=== PATIENT | female | born 1960 ===

== ENCOUNTER 2016-08-24 13:39 | Observation (INO) | payer OTHER ==
[2016-08-24 14:46] LABS: BASO # 0.1 K/uL (0.0-0.2); BASO % 0.9 % (0.0-2.0); EOS # 0.4 K/uL (0.0-0.7); EOS % 5.5 % (0.0-4.0); LYMPH % 29.4 % (20.0-40.0); MEAN CORPUSCULAR HEMOGLOBIN 26.7 pg (27.0-31.0); MEAN CORPUSCULAR HGB CONC 31.3 g/dL (33.0-37.0); MEAN PLATELET VOLUME 10.3 fL (7.2-11.7); MONO # 0.5 K/uL (0.0-0.8); MONO % 7.6 % (0.0-10.0); WHITE BLOOD COUNT 6.8 K/uL (4.8-10.8)
[2016-08-24 14:59] LABS: POTASSIUM 4.3 mmol/L (3.6-5.2)
[2016-08-24 15:01] LABS: ALB/GLOB RATIO 0.9 (1.0-2.1); BILIRUBIN,TOTAL 0.7 mg/dL (0.2-1.3); TOTAL PROTEIN 7.7 g/dL (6.3-8.3)
[2016-08-24 15:02] LABS: CALCIUM 8.9 mg/dl (8.6-10.4)
[2016-08-24 15:12] LABS: TROPONIN I 0.09 ng/mL (0.00-0.120)
[2016-08-24 15:13] LABS: RBC URINE 5 /hpf (0-3); URINE BACTERIA RARE (<OCC); URINE BILIRUBIN NEGATIVE (NEGATIVE); URINE BLOOD NEGATIVE (NEGATIVE); URINE COLOR Yellow (YELLOW); URINE GLUCOSE (UA) 3+ mg/dL (Normal); URINE KETONE NEGATIVE (NEGATIVE); URINE LEUKOCYTE ESTERASE 3+ Leu/uL (Negative); URINE PROTEIN 3+ mg/dL (NEGATIVE); URINE UROBILINOGEN NORMAL mg/dL (0.2-1.0); WBC URINE 46 /hpf (0-5)
--- NOTE | 2016-08-24 15:32 | RAD ---
HISTORY: SOB COMPARISON: No prior. TECHNIQUE: Chest PA and lateral FINDINGS: LUNGS: Increased interstitial markings likely representing pulmonary venous congestion however the possibility of interstitial pneumonia not completely excluded. Clinical correlation recommended. PLEURA: No significant pleural effusion identified. No pneumothorax apparent. CARDIOVASCULAR: Cardiomegaly. OSSEOUS STRUCTURES: No significant abnormalities. VISUALIZED UPPER ABDOMEN: Normal. OTHER FINDINGS: None. IMPRESSION: Cardiomegaly. Increased interstitial markings likely representing pulmonary venous congestion however the possibility of interstitial pneumonia not completely excluded. Clinical correlation recommended.
--- NOTE | 2016-08-24 15:37 | C.PDOC ---
History Of Present Illness A 56 y/o female with htn, dm, [place] presents to the ER c/o chest pain and bilateral leg swelling for " a long time". Pt notes pain worsened last week and had trouble ambulating. Chest pain is sharp and worse with movement. Pt notes occasional shortness of breath, increased thirst and frequent urination, but denies fever, nausea, vomiting, dizziness, palpitations, light headedness or any other complaints. Pt reports she lived in [place] and moved here 4 months ago. Pt has not been compliant with her chronic medications for a week. According to old paperwork pt is on Insulin, Plavix, lasix and is unsure why she takes it but notes having " surgery on the groin". Pt is a poor historian. Time Seen by Provider: 08/24/16 14:22 Chief Complaint (Nursing): Chest Pain History Per: Patient, Family () History/Exam Limitations: language barrier (Information from ) Onset/Duration Of Symptoms: Days Current Symptoms Are (Timing): Still Present Severity: Mild Quality: "Pain" Recent travel outside of the [place]: No Additional History Per: Patient, Family Past Medical History Reviewed: Historical Data, Nursing Documentation, Vital Signs Vital Signs: Last Vital Signs Temp 98.4 F 08/24/16 16:42 Pulse 83 08/24/16 16:42 Resp 17 08/24/16 16:42 BP 179/88 H 08/24/16 16:42 Pulse Ox 98 08/24/16 18:17 Family History: States: Diabetes - Social History Hx Tobacco Use: No (quit 7 years ago) Hx Alcohol Use: No Hx Substance Use: No - Immunization History Hx Influenza Vaccination: No Hx Pneumococcal Vaccination: Yes Review Of Systems Except As Marked, All Systems Reviewed And Found Negative. Constitutional: Positive for: Other (Increased thirst). Negative for: Fever, Chills Cardiovascular: Positive for: Chest Pain. Negative for: Palpitations, Light Headedness Respiratory: Positive for: Shortness of Breath (Occasional) Gastrointestinal: Negative for: Nausea, Vomiting Genitourinary: Positive for: Frequency (Urination) Neurological: Negative for: Dizziness Physical Exam - Physical Exam Appears: Well, Non-toxic, No Acute Distress Skin: Warm, Dry Head: Atraumatic, Normacephalic Eye(s): bilateral: Normal Inspection, EOMI Nose: Normal Oral Mucosa: Moist Chest: Symmetrical, Tenderness (Left sided Reproducable chest wall tenderness) Cardiovascular: Rhythm Regular, No Murmur Respiratory: Normal Breath Sounds, No Accessory Muscle Use, Other (Speaking full sentences) Gastrointestinal/Abdominal: Normal Exam, Soft, No Tenderness Extremity: Normal ROM, No Tenderness, Pedal Edema (Bilateral pedal edema. Mild erythema. (left greater than right)), No Calf Tenderness, Capillary Refill (< 2secs), No Deformity Pulses: Left Dorsalis Pedis: Normal, Right Dorsalis Pedis: Normal Neurological/Psych: Oriented x3, Normal Speech, Other (No focal deficit) ED Course And Treatment - Laboratory Results Result Diagrams: 08/24/16 14:38 08/24/16 14:38 ECG: Interpreted By Me, Viewed By Me ECG Rhythm: Sinus Rhythm ECG Interpretation: Normal Rate From EC O2 Sat by Pulse Oximetry: 98 (RA) Pulse Ox Interpretation: Normal Progress Note: Impression: 56 y/o c/o chest pain and blateral leg swelling for "a long time". Plan: Aspirin, Blood labs, Vascular lab. Talked to Dr. Reddy and agreed upon admission. Disposition - Disposition Disposition: HOSPITALIZED Disposition Time: 16:30 Condition: STABLE - Clinical Impression Clinical Impression: Chest pain, Congestive heart failure, UTI (urinary tract infection) - Scribe Statement The provider has reviewed the documentation as recorded by the [employer] All medical record entries made by the Scribe were at my direction and personally dictated by me. I have reviewed the chart and agree that the record accurately reflects my personal performance of the history, physical exam, medical decision making, and the department course for this patient. I have also personally directed, reviewed, and agree with the discharge instructions and disposition.
[2016-08-24 15:46] LABS: PARTIAL THROMBOPLASTIN TIME 28 SECONDS (21-34)
--- NOTE | 2016-08-24 16:58 | CP.PCM.HP ---
<Masoud Mcconnell - Last Filed: 08/24/16 18:05> History of Present Illness - History of Present Illness History of Present Illness: CC: chest pain and swollen legs 56F PMHx HTN, DM, CKD, right CVA 4 years ago, [place] 3 years ago here complaining worsening chest pain and swelling of bilateral LE. Patient said chest pain started 2 months ago, sharp in nature and worse with movements. Pain is intermittent and usually lasts around 30 minutes. Patient said activities worsens the pain and pain radiate down to her abdomen. Patient also complains swelling for the past 3 years but recently got worse because she ran out of all of her medication, which includes Lasix that usually improves her symptoms. Patient returned from [place] 4 months ago after visiting her son, and was hospitalized at [facility] in [place], [place] for similar symptoms. Patient is not sure why she was on Plavix, said she had some kind of groin surgery 3-4 years ago. Patient also said she was told to stop Lisinopril long time ago due to her kidney problems. Patient has been compliant with her medication until 1- 2 months ago when she ran out of them. Patient sleeps with 2 pillows due to orthopnea and can only tolerate one block of walking before getting SOB. Patient also said she has 3+ pounds weight gain in the last week as well. Patient denied sweating, SOB, fever, chills, n/v, constipation, diarrheal, dysuria. PMHx: see above PSHx: possible cath 3 years ago, gallbladder removed long time ago FMHx: DM Social: former smoker with 13 pack years history, stopped 7 years ago. Denied ETOH or drugs. PMD: none Present on Admission - Present on Admission Any Indicators Present on Admission: No Review of Systems - Review of Systems All systems: reviewed and no additional remarkable complaints except - Constitutional Constitutional: absent: Chills, Fever - EENT Eyes: absent: Change in Vision - Cardiovascular Cardiovascular: Chest Pain, Chest Pain with Activity, Claudication, Dyspnea on Exertion, Edema - Respiratory Respiratory: absent: Cough, Dyspnea, Wheezing - Gastrointestinal Gastrointestinal: absent: Abdominal Pain, Constipation, Diarrhea, Nausea, Vomiting - Genitourinary Genitourinary: absent: Dysuria - Neurological Neurological: Tingling (right fingers). absent: Abnormal Gait Past Patient History - Infectious Disease Hx of Infectious Diseases: None - Past Social History Smoking Status: Never Smoked - CARDIAC Hx Cardiac Disorders: Yes Other/Comment: [place] 3 YEARS AGO - ENDOCRINE/METABOLIC Hx Diabetes Mellitus Type 2: Yes - PSYCHIATRIC Hx Substance Use: No Meds Allergies/Adverse Reactions: Allergies Allergy/AdvReac Type Severity Reaction Status Date / Time No Known Allergies Allergy Verified 08/24/16 13:56 Physical Exam - Constitutional Appears: Non-toxic, No Acute Distress - Head Exam Head Exam: NORMAL INSPECTION, NORMOCEPHALIC - Eye Exam Eye Exam: Normal appearance Pupil Exam: NORMAL ACCOMODATION - Respiratory Exam Respiratory Exam: Decreased Breath Sounds, Clear to Auscultation Bilateral, NORMAL BREATHING PATTERN. absent: Rhonchi, Wheezes - Cardiovascular Exam Cardiovascular Exam: REGULAR RHYTHM, JVD, +S1, +S2. absent: Tachycardia, Diastolic murmur, Gallop, Rubs - GI/Abdominal Exam GI & Abdominal Exam: Normal Bowel Sounds, Soft. absent: Tenderness - Extremities Exam Extremities exam: Positive for: pedal edema, pedal pulses present - Neurological Exam Neurological exam: Alert, Oriented x3 - Psychiatric Exam Psychiatric exam: Normal Affect, Normal Mood - Skin Skin Exam: Intact Results - Vital Signs Recent Vital Signs: Last Vital Signs Temp 98.4 F 08/24/16 16:42 Pulse 83 08/24/16 16:42 Resp 17 08/24/16 16:42 BP 179/88 H 08/24/16 16:42 Pulse Ox 95 08/24/16 16:42 - Labs Result Diagrams: 08/24/16 14:38 08/24/16 14:38 Assessment & Plan - Assessment and Plan (Free Text) Assessment: Chest pain likely secondary to CHF Admit to tele. EKG NSR@75bpm. CXR showed cardiomegaly and pulmonary congestion per report. BNP 43225. Negative d-dimer. CORRINE negative x1. Cardio Dr. Jean consulted, help appreciated. Lasix 40mg IV q12H. Toradol 30mg IV q6H PRN. Lopressor 25mg PO q12H. Lisinopril on hold due to kidney injuries. F/U CORRINE x2. F/U ECHO. F/U lipid panel. F/U TSH and T4. Lower extremity swelling likely secondary to CHF Arterial duplex negative for clot. Other management as per above. CKD Cr 2.[address] Greene consulted, help appreciated. DM RISS, accuchecks. Lantus 10U SC HS. F/U A1c. Hx of CVA and [place] Plavix 75mg PO daily. ASA 81mg PO daily. Crestor 20mg PO HS. Positive UA Patient asymptomatic. F/U urine culture. Prophylactic measure SCD contraindicated, Plavix, Protonix. <Trey Sanderson - Last Filed: 09/25/16 13:33> Results - Vital Signs Recent Vital Signs: Last Vital Signs Temp 97.9 F 08/26/16 15:29 Pulse 59 L 08/26/16 15:30 Resp 20 08/26/16 15:29 BP 123/60 08/26/16 23:53 Pulse Ox 95 08/26/16 15:29 - Labs Result Diagrams: 08/27/16 13:50 08/27/16 13:50 Attending/Attestation - Attestation I have personally seen and examined this patient.: Yes I have fully participated in the care of the patient.: Yes I have reviewed all pertinent clinical information: Yes Notes (Text): Patient Seen and examined with the resident. Agree with the resident's evaluation, assessment and plan. Chest pain rule out acute mi likely also acute on chronic CHF unk ef Lower extremity swelling likely secondary to CHF CKD
[2016-08-24] MEDS ORDERED: Pantoprazole 40 mg EC Tab PO SCH (18:00)
[2016-08-24 19:44] VITALS: RESP 20
[2016-08-24] MEDS: (Novolin R) Insulin Human Regular 100 units/ml vial SC SCH (22:19)
[2016-08-24] MEDS: Insulin Detemir 100 units/ml Vial (Levemir) SC SCH (22:19)
[2016-08-25 07:12] LABS: BASO # 0.1 K/uL (0.0-0.2); EOS # 0.4 K/uL (0.0-0.7); EOS % 6.9 % (0.0-4.0); HEMATOCRIT 35.8 % (34.0-47.0); LYMPH # 1.5 K/uL (1.0-4.3); LYMPH % 25.6 % (20.0-40.0); MEAN CELL VOLUME 83.7 fL (81.0-99.0); MEAN CORPUSCULAR HEMOGLOBIN 26.3 pg (27.0-31.0); MEAN CORPUSCULAR HGB CONC 31.4 g/dL (33.0-37.0); MEAN PLATELET VOLUME 10.1 fL (7.2-11.7); MONO # 0.5 K/uL (0.0-0.8); RED CELL DISTRIBUTION WIDTH 14.7 % (11.5-14.5); WHITE BLOOD COUNT 5.8 K/uL (4.8-10.8)
[2016-08-25 07:37] LABS: CHLORIDE 106 mmol/L (98-107)
[2016-08-25 07:38] LABS: POTASSIUM 4.3 mmol/L (3.6-5.2); SODIUM 140 mmol/L (132-148)
[2016-08-25 07:40] LABS: AST/SGOT 23 U/L (14-36); BILIRUBIN,TOTAL 0.6 mg/dL (0.2-1.3); BLOOD UREA NITROGEN 50 mg/dL (7-17); CARBON DIOXIDE 24 mmol/L (22-30); CHOLESTEROL 253 mg/dL (0-199); GFR AFRICAN-AMERICAN 23; TOTAL PROTEIN 6.9 g/dL (6.3-8.3)
[2016-08-25 07:41] LABS: ALKALINE PHOSPHATASE 122 U/L (38-126); ALT/SGPT 24 U/L (9-52); CALCIUM 8.5 mg/dl (8.6-10.4); GLUCOSE,RANDOM 131 mg/dL (65-105)
[2016-08-25] MEDS: (Novolin R) Insulin Human Regular 100 units/ml vial SC SCH ×4 (08:13→22:20)
[2016-08-25 08:23] LABS: T4 6.12 ug/dL (5.5-11.0)
[2016-08-25 08:58] LABS: CREATININE, RANDOM URINE 39.9 mg/dL
--- NOTE | 2016-08-25 09:55 | VASCLAB ---
PROCEDURE: Lower Extremity Venous Duplex Exam. HISTORY: swelling pain PRIORS: None. TECHNIQUE: Bilateral common femoral, femoral, popliteal and posterior tibial, peroneal and great saphenous veins were evaluated. Flow was assessed with color Doppler, compressibility, assessment of phasic flow and augmentation response. Report prepared by STEWART Li, RVT FINDINGS: RIGHT: 1. Common Femoral Vein: 1.1. Compressibility - Fully compressible: Thrombus - None : Flow - Phasic: Augmentation -Normal: Reflux - None. 2. Femoral Vein: 2.1. Compressibility - Fully compressible: Thrombus - None : Flow - Phasic: Augmentation -Normal: Reflux - None. 3. Popliteal Vein: 3.1. Compressibility - Fully compressible: Thrombus - None : Flow - Phasic: Augmentation -Normal: Reflux - None. 4. Posterior Tibial Vein: 4.1. Compressibility - Fully compressible: Thrombus - None: Flow - Phasic: Augmentation -Normal: Reflux - None. 5. Peroneal Vein: 5.1. Compressibility - Fully compressible: Thrombus - None: Flow - Phasic: Augmentation -Normal: Reflux - None. 6. Great Saphenous Vein: 6.1. Compressibility - Fully compressible: Thrombus - None: Flow - Phasic: Augmentation - Normal: Reflux - None. LEFT: 1. Common Femoral Vein: 1.1. Compressibility - Fully compressible: Thrombus - None: Flow - Phasic: Augmentation -Normal: Reflux - None. 2. Femoral Vein: 2.1. Compressibility - Fully compressible: Thrombus - None: Flow - Phasic: Augmentation -Normal: Reflux - None. 3. Popliteal Vein: 3.1. Compressibility - Fully compressible: Thrombus - None : Flow - Phasic: Augmentation -Normal: Reflux - None. 4. Posterior Tibial Vein: 4.1. Compressibility - Fully compressible: Thrombus - None: Flow - Phasic: Augmentation -Normal: Reflux - None. 5. Peroneal Vein: 5.1. Compressibility - Fully compressible: Thrombus - None: Flow - Phasic: Augmentation -Normal: Reflux - None. 6. Great Saphenous Vein: 6.1. Compressibility - Fully compressible: Thrombus - None: Flow - Phasic: Augmentation - Normal: Reflux - None. OTHER FINDINGS: Right: None significant. Left: None significant. IMPRESSION: Right: No evidence of deep or superficial vein thrombosis of the right lower extremity. Normal valve function noted of the right side. Left: No evidence of deep or superficial vein thrombosis of the left lower extremity. Normal valve function noted of the left side.
--- NOTE | 2016-08-25 10:31 | US ---
Renal and urinary bladder ultrasound History: Renal failure. Comparison: None available. Technique: Real-time sonography was performed through the kidneys and urinary bladder. Findings: Right kidney: 9.6 x 4.5 x 5.3 centimeters. Mild increased echogenicity of the renal cortex suggestive for medical renal disease. No calculi or hydronephrosis. Visualized aorta is preserved. Left kidney: 7.9 x 4.4 x 4.7 centimeters. Mild increased echogenicity of the renal cortex suggestive for medical renal disease. No calculi or hydronephrosis. Under distended and or mildly thickened urinary bladder. Prevoid bladder volume of 126 cc. No significant postvoid residual noted within the urinary bladder. Bilateral ureteral jets were noted. No gross bladder wall thickening. No bladder calculus noted. Impression: Increased echogenicity of the bilateral renal cortices suggestive for medical renal disease. Mild thickening versus underdistention of the urinary bladder.
--- NOTE | 2016-08-25 12:44 | CON ---
DATE: 08/25/2016 REASON FOR CONSULTATION: Chest pain. HISTORY OF PRESENT ILLNESS: The patient is a 56-year-old female who is a smoker. She prese nted because of sharp chest pain as well as bilateral leg swelling. The patient stated that her pain gets worse with movement and if she touches her chest. The patient denies any radiation of her ches t discomfort. The patient states that she had a heart attack and cardiac catheterization some 5 year s ago at [facility], but is unaware of any coronary intervention. There are no obtainable recor ds on the [employer] database for that history. SOCIAL HISTORY: The patient is a smoker, nondrinker. MEDICATIONS: Aspirin 81 mg once a day, Crestor 20 mg once a day, heparin 5000 units q. 12 hours, Las ix 40 mg intravenous twice a day, Lopressor 25 mg once a day, Plavix 75 mg once a day. PHYSICAL EXAMINATION: GENERAL: The patient is a middle-aged female who does not appear to be in any distress. VITAL SIGNS: Blood pressure 129/71, heart rate 55, temperature 97.9, respirations 20. HEENT: Normocephalic. NECK: No JVD. CHEST: Clear. HEART: S1, S2 regular. EXTREMITIES: 1+ pitting edema. DIAGNOSTIC DATA: EKG revealed sinus rhythm, left atrial enlargement, right axis deviation. LABORATORY DATA: SMA-7 is within normal limits except for glucose of 131, BUN and creatinine are 50 and 2.6. Hemoglobin and hematocrit 11.3 and 35.8. White count and platelet count are within normal limits. PT, PTT and D-dimer are within normal limits. Venous Doppler of lower extremities, no DVT. Two sets of troponins are negative. Triglycerides 167, total cholesterol 253, LDL cholesterol 135. The 3 are elevated. ASSESSMENT: 1. Chest pain, myocardial infarction is ruled out. 2. Chronic renal insufficiency. 3. Hyperlipidemia. 4. Rule out congestive heart failure. RECOMMENDATIONS: Continue current aspirin 81 mg once a day, Crestor 20 mg once a day, subcutaneous h eparin 5000 units twice a day, Lasix 40 mg intravenous twice a day, Lopressor 25 mg twice a day, Plav ix 75 mg once a day. The patient is not a suitable candidate for CYN inhibitors, at least at this ti me. Obtain an echocardiograph study as well as urine drug screen. Josef Jean MD cc: [id number] TT: 08/25/2016 12:44:23 Confirmation # [id number] Dictation # [id number] rn
[2016-08-25 14:57] LABS: RBC URINE 22 /hpf (0-3); URINE BACTERIA RARE (<OCC); URINE BILIRUBIN NEGATIVE (NEGATIVE); URINE BLOOD 1+ (NEGATIVE); URINE COLOR Yellow (YELLOW); URINE GLUCOSE (UA) 2+ mg/dL (Normal); URINE KETONE NEGATIVE (NEGATIVE); URINE LEUKOCYTE ESTERASE 3+ Leu/uL (Negative); URINE PROTEIN 2+ mg/dL (NEGATIVE); URINE UROBILINOGEN NORMAL mg/dL (0.2-1.0); WBC URINE 81 /hpf (0-5)
--- NOTE | 2016-08-25 17:14 | CP.PCM.PN ---
<Donta Rizvi - Last Filed: 09/01/16 22:00> Subjective - Date & Time of Evaluation Date of Evaluation: 08/25/16 Time of Evaluation: 07:43 - Subjective Subjective: Pt seen and examined. Pt reports that she is feeling better today. Pt reports that her shortness of breath has improved. Pt denies fever, chills, chest pain, shortness of breath, nausea, and vomiting. Objective - Vital Signs/Intake and Output Vital Signs (last 24 hours): Temp Pulse Resp BP Pulse Ox 98.1 F 62 20 138/72 99 08/25/16 15:00 08/25/16 15:00 08/25/16 15:00 08/25/16 15:00 08/25/16 15:00 Intake and Output: 08/25/16 08/25/16 06:59 18:59 Intake Total 100 Output Total 350 Balance -250 - Medications Medications: Current Medications Aspirin (Aspirin Chewable) 81 mg PO DAILY [facility] Last Admin: 08/25/16 10:13 Dose: 81 mg Clopidogrel Bisulfate (Plavix) 75 mg PO DAILY [facility] Last Admin: 08/25/16 10:17 Dose: 75 mg Famotidine (Pepcid) 20 mg PO DAILY [facility] Last Admin: 08/25/16 10:13 Dose: 20 mg Furosemide (Lasix) 40 mg IVP Q12H [facility] Last Admin: 08/25/16 06:03 Dose: 40 mg Heparin Sodium (Porcine) (Heparin) 5,000 units SC Q12 [facility] Last Admin: 08/25/16 10:22 Dose: 5,000 units Insulin Detemir (Levemir) 10 unit SC [facility] Last Admin: 08/24/16 22:19 Dose: 10 unit Insulin Human Regular (Novolin R) 0 unit SC [facility] PRN Reason: Protocol Last Admin: 08/25/16 12:00 Dose: Not Given Metoprolol Tartrate (Lopressor) 25 mg PO Q12H [facility] Last Admin: 08/25/16 06:02 Dose: 25 mg Rosuvastatin Calcium (Crestor) 20 mg PO [facility] Last Admin: 08/24/16 22:18 Dose: 20 mg - Labs Labs: 08/25/16 06:57 08/25/16 06:57 PT 10.6 SECONDS (9.7-12.2) 08/24/16 15:31 INR 1.0 08/24/16 15:31 APTT 28 SECONDS (21-34) 08/24/16 15:31 - Constitutional Appears: No Acute Distress - Head Exam Head Exam: ATRAUMATIC, NORMOCEPHALIC - Eye Exam Eye Exam: EOMI, PERRL - ENT Exam ENT Exam: Mucous Membranes Moist. absent: Mucous Membranes Dry - Neck Exam Neck Exam: Full ROM. absent: Lymphadenopathy - Respiratory Exam Respiratory Exam: Clear to Ausculation Bilateral. absent: Rales, Rhonchi, Wheezes - Cardiovascular Exam Cardiovascular Exam: +S1, +S2 - GI/Abdominal Exam GI & Abdominal Exam: Soft. absent: Tenderness - Extremities Exam Extremities Exam: Full ROM. absent: Pedal Edema - Neurological Exam Neurological Exam: Alert, Awake, Oriented x3 - Psychiatric Exam Psychiatric exam: Normal Affect, Normal Mood - Skin Skin Exam: Normal Color, Warm Assessment and Plan - Assessment and Plan (Free Text) Assessment: CHF Exacerbation: CXR - cardiomegaly and pulmonary venous congestion (please see full report_ Pro-BNP 17709. D-dimer < 200 Cardiology, Dr. Jena consulted, help appreciated. Lasix 40mg IV q12H. Lopressor 25mg PO q12H. Lisinopril held due to CKD Troponins 0.09, 0.092, 0.1 x 3 Echocardiogram - severe cardiomyopathy, ejection fraction of 35% Arterial duplex negative Renal Insufficiency: Cr 2.6 today, worsening Nephro Dr. Greene consulted, help appreciated. As per nephro, likely worsening CKD due to diabetic nephropathy Diabetes Mellitus: RISS, accuchecks. Lantus 10U SC HS. Hx of [place]: Plavix 75mg PO daily. ASA 81mg PO daily. Crestor 20mg PO HS. Prophylactic measure: DVT: SCDs contraindicated due to lower extremity edema, heparin 5000 units sc q12h GI: Protonix 40 mg po qd <Trey Sanderson - Last Filed: 09/25/16 14:28> Objective - Vital Signs/Intake and Output Vital Signs (last 24 hours): Temp Pulse Resp BP Pulse Ox 97.9 F 59 L 20 123/60 95 08/26/16 15:29 08/26/16 15:30 08/26/16 15:29 08/26/16 23:53 08/26/16 15:29 - Labs Labs: 08/27/16 13:50 08/27/16 13:50 PT 10.6 SECONDS (9.7-12.2) 08/24/16 15:31 INR 1.0 08/24/16 15:31 APTT 28 SECONDS (21-34) 08/24/16 15:31 Attending/Attestation - Attestation I have personally seen and examined this patient.: Yes I have fully participated in the care of the patient.: Yes I have reviewed all pertinent clinical information, including history, physical exam and plan: Yes Notes (Text): Patient Seen and examined with the resident. Agree with the resident's evaluation, assessment and plan. CHF Exacerbation: acute on chronic diastolic Acute Renal Insufficiency
--- NOTE | 2016-08-25 17:39 | CARD ---
APPROVED REPORT EXAM: Two-dimensional and M-mode echocardiogram with Doppler and color Doppler. Other Information Quality : GoodRhythm : NSR INDICATION Chest Pain Congestive Heart Failure PEDAL EDEMA M-Mode DIMENSIONS RVDd2.23 (2.1-3.2cm)Left Atrium (MM)3.75 (2.5-4.0cm) IVSd1.13 (0.7-1.1cm)Aortic Root2.77 (2.2-3.7cm) LVDd5.15 (4.0-5.6cm)Aortic Cusp Exc.1.41 (1.5-2.0cm) PWd0.98 (0.7-1.1cm)FS (%) 17 % LVDs4.30 (2.0-3.8cm)LVEF (%)35 (>50%) Aortic Valve AoV Peak Rttmogsm730.8cm/Ayah Peak GR.4mmHg Mitral Valve MV E Bpkwuckf537.8cm/sMV A Mlstwmeg86.6cm/sE/A ratio5.5 TDI E/Lateral E'0.0E/Medial E'0.0 Tricuspid Valve TR Peak [id number]/sTR Peak Gr.[id number] LEFT VENTRICLE The left ventricle is normal size. There is normal left ventricular wall thickness. The left ventricular function is markedly reduced. The left ventricular ejection fraction is about 25%. The mid and apical inferolateral lassiter are dyskinetic. Transmitral Doppler flow pattern is Grade III- restrictive diastolic dysfunction. No left ventricle thrombus noted on this study. There is no ventricular septal defect visualized. There is no left ventricular aneurysm. There is no mass noted in the left ventricle. RIGHT VENTRICLE The right ventricle is normal size. There is normal right ventricular wall thickness. The right ventricular systolic function is mildly reduced ATRIA The left atrium size is normal. The right atrium size is normal. The interatrial septum is intact with no evidence for an atrial septal defect. AORTIC VALVE The aortic valve is normal in structure and function. Mild aortic regurgitation is present. There is no aortic valvular stenosis. There is no aortic valvular vegetation. MITRAL VALVE The mitral valve is normal in structure and function. There is no evidence of mitral valve prolapse. There is no mitral valve stenosis. There is no mitral valve regurgitation noted. TRICUSPID VALVE The tricuspid valve is normal in structure and function. There is mild tricuspid valve regurgitation noted. Estimated PA systolic pressure is 28 mm Hg. There is no tricuspid valve prolapse or vegetation. There is no tricuspid valve stenosis. PULMONIC VALVE The pulmonary valve is normal in structure and function. There is no pulmonic valvular regurgitation. There is no pulmonic valvular stenosis. GREAT VESSELS The aortic root is normal in size. The ascending aorta is normal in size. The pulmonary artery is normal. The IVC is normal in size and collapses >50% with inspiration. PERICARDIAL EFFUSION The pericardium appears normal. There is no pleural effusion. <Conclusion> Severe cardiomyopathy. The mid and apical inferolateral lassiter are dyskinetic. Advanced diastolic dysfunction with elevated LA pressure. Mild aortic regurgitation.
--- NOTE | 2016-08-25 18:31 | CARD ---
APPROVED REPORT EKG Measurement Heart [id number] <Conclusion> Normal sinus rhythm Possible Left atrial enlargement Right axis deviation Abnormal ECG
--- NOTE | 2016-08-25 21:34 | CON ---
DATE: 08/25/2016 HISTORY OF PRESENT ILLNESS: The patient is a 56-year-old female with past medical history of diabete s, hypertension, status post CVA, status post WI and CKD stage IV, admitted with chest pain and CHF e xacerbation. Nephrology being consulted for worsening of renal failure. The patient reports having been told about her chronic kidney disease, but did not pursue any followu p. The patient also reports having run out of all of her medications for several months and has not been following with any PMD. The patient reports shortness of breath on exertion. Was only able to tolerate 1 block of walking before getting short of breath. Bilateral leg edema has been persistent also for some time now. Denies any urinary symptoms, difficulty urinating or dysuria. PAST MEDICAL HISTORY: As mentioned above. SOCIAL HISTORY: A previous smoker, stopped 7 years ago. FAMILY HISTORY: Diabetes. REVIEW OF SYSTEMS: CONSTITUTIONAL: No chills or fever. HEENT: Vision has been worsening, can see almost nothing in right eye. CARDIOVASCULAR: As mentioned in HPI. RESPIRATORY: No URI symptoms. GASTROINTESTINAL: No nausea, vomiting, diarrhea. GENITOURINARY: As mentioned in HPI. NEUROLOGIC: Bilateral foot numbness. PSYCHIATRIC: Denies any anxiety or depression. HEMATOLOGIC: Denies any bleeding. SKIN: Denies any itching or rashes. PHYSICAL EXAMINATION: VITAL SIGNS: This morning, blood pressure 129/71, heart rate 55, respirations 20, O2 sat 96% on room air, temperature 97.9. GENERAL: No distress. Stable to converse coherently in full sentences. HEENT: Normocephalic, atraumatic. Moist mucous membranes. Nonicteric. RESPIRATORY: Very mild inspiratory rales present. Otherwise, no rhonchi, no wheezes. HEART: S1, S2 normal, no murmurs, no gallops, no rubs. GASTROINTESTINAL: Abdomen soft, nontender, nondistended. GENITOURINARY: No bladder distention. EXTREMITIES: Moderate bilateral lower leg edema. Normal capillary refill. Faint dorsalis pedis pul ses palpable. SKIN: Warm, no cyanosis. PSYCHIATRIC: Normal mood, normal affect. NEUROLOGIC: Decreased sensation in bilateral feet. LABORATORY DATA: WBC 5.8, hemoglobin 11.3, hematocrit 35.8, platelets 243. Chemistry panel: Sodium 140, potassium 4.3, chloride 106, bicarb 24, BUN 50, creatinine 2.6, glucose 131, calcium 8.5, album in 3.4, cholesterol 253, LDL 135. Hemoglobin A1c 11.2. UA showing 2+ protein, 2+ glucose, 1+ blood, 3+ leukocyte esterase, 81 WBCs per high-power field, 22 RBCS per high-power field, rare bacteria. U rine protein to creatinine ratio 8.5 g/g. ASSESSMENT AND PLAN: 1. Chronic kidney disease stage IV, most likely secondary to diabetic nephropathy with progression o f CKD and proteinuria consistent with this diagnosis. This patient's creatinine was about 1.5 a year and a half ago and with about 1 gram of proteinuria. Additional serologic workup obtained to look f or other potential causes, but has been unremarkable with unremarkable complement levels, hepatitis B and C negative, awaiting REID and ANCA serologies as well as workup for possible dysproteinemia with serum free light chains and protein electrophoresis pending. 2. Relatively stable electrolyte status. 3. Avoid nephrotoxic agents. Do not give NSAIDs for pain. Will hold off on ARB for now until it ca n be safely concluded that renal function is stable. 4. Acute decompensated systolic congestive heart failure. The patient with echo showing severe syst olic dysfunction with multiple wall motion abnormalities, also with diastolic dysfunction noted. Cur rently on Lasix IV 40 mg q. 12 hours. Agree with this regimen. Continue with beta blockers to optim ize cardiac status. 5. Proteinuria nephrotic syndrome with more than 8 grams of protein. Proteinuria per urine protein c reatinine ratio, hypoalbuminemia and hyperlipidemia. In general, the mainstay of treatment for prote inuria is RAAS blockade with either ARB or CYN inhibitor as this has been shown to slowly decline in renal function. However, must be weighed against further worsening renal function, which can be expe cted with initiation of these agents. If left completely untreated then advancing to ESRD will have been very quickly. If renal function is stable tomorrow and the patient's volume status has improved will consider starting low dose losartan 25 mg daily. 6. Hyperlipidemia. The patient with diabetes and further with nephrotic syndrome should be on high potency statin, i.e., either atorvastatin or rosuvastatin. 7. Hematuria. Microscopic can be glomerular etiology which can be seen in diabetic nephropathy. We will need to directly visualize for better assessment. Recommend to send urine for cytology. Colton Greene MD cc: [id number] TT: 08/25/2016 21:33:16 Confirmation # [id number] Dictation # [id number]
[2016-08-25] MEDS: Insulin Detemir 100 units/ml Vial (Levemir) SC SCH (22:19)
[2016-08-26 04:22] LABS: TOTAL PROTEIN, SERUM 6.5 g/dL (6.1-8.1)
[2016-08-26] MEDS: (Novolin R) Insulin Human Regular 100 units/ml vial SC SCH ×4 (07:30→22:45)
[2016-08-26 07:47] LABS: IRON 39 ug/dL (37-170)
[2016-08-26 10:34] LABS: BASO # 0.1 K/uL (0.0-0.2); BASO % 1.1 % (0.0-2.0); EOS # 0.4 K/uL (0.0-0.7); EOS % 6.6 % (0.0-4.0); HEMATOCRIT 36.9 % (34.0-47.0); LYMPH # 1.6 K/uL (1.0-4.3); LYMPH % 25.4 % (20.0-40.0); MEAN CELL VOLUME 84.6 fL (81.0-99.0); MEAN CORPUSCULAR HEMOGLOBIN 26.4 pg (27.0-31.0); MEAN CORPUSCULAR HGB CONC 31.2 g/dL (33.0-37.0); MEAN PLATELET VOLUME 9.9 fL (7.2-11.7); MONO # 0.4 K/uL (0.0-0.8); MONO % 6.5 % (0.0-10.0); RED CELL DISTRIBUTION WIDTH 14.8 % (11.5-14.5); WHITE BLOOD COUNT 6.5 K/uL (4.8-10.8)
[2016-08-26 10:42] LABS: POTASSIUM 4.2 mmol/L (3.6-5.2)
[2016-08-26 10:44] LABS: BILIRUBIN,TOTAL 0.6 mg/dL (0.2-1.3); CALCIUM 8.4 mg/dl (8.6-10.4); PHOSPHOROUS 5.3 mg/dL (2.5-4.5)
[2016-08-26 10:45] LABS: MAGNESIUM 1.9 mg/dL (1.6-2.3)
[2016-08-26 10:50] LABS: ALB/GLOB RATIO 0.9 (1.0-2.1)
[2016-08-26 12:23] LABS: BETA 1 GLOBULIN 0.5 g/dL (0.4-0.6); BETA 2 GLOBULIN 0.5 g/dL (0.2-0.5); GAMMA GLOBULIN 1.1 g/dL (0.8-1.7)
--- NOTE | 2016-08-26 14:16 | PN ---
DATE: 08/26/2016 The patient's shortness of breath has improved. PHYSICAL EXAMINATION: VITAL SIGNS: Blood pressure 144/70, heart rate 54, temperature 98.1. HEENT: Normocephalic. NECK: No JVD. CHEST: Diminished breath sounds over the bases. HEART: S1, S2 regular. EXTREMITIES: 1+ pitting edema. LABORATORIES: Today's BUN and creatinine are 59 and 0.8. Glucose 306. Potassium is within normal l imits. Echocardiographic study report is consistent with ischemic cardiomyopathy, mild aortic insuff iciency, ejection fraction 25%. ASSESSMENT: 1. Consider ischemic cardiomyopathy. 2. Worsening renal insufficiency. 3. Uncontrolled diabetes mellitus. RECOMMENDATIONS: Case was discussed at length with the medical team. Continue current aspirin 81 mg once a day, Crestor 20 mg once a day, subcutaneous heparin 5000 units twice a day. Reduce Lasix to 40 mg intravenously once a day. Continue Plavix 75 mg once a day. The patient is not a suitable can didate for either CYN inhibitors or Aldactone because of underlying renal insufficiency. Cardiac cat heterization carries the risk of worsening renal insufficiency and probably placing the patient on he modialysis and should be awaited until decision of the patient's disposition is clear with how she wi ll follow up and how she will be able to afford her outpatient medications. Josef Jean MD cc: [id number] TT: 08/26/2016 14:16:30 Confirmation # [id number] Dictation # [id number] [email or web address]
[2016-08-26 14:21] LABS: RBC URINE 5 /hpf (0-3); URINE BACTERIA RARE (<OCC); URINE BILIRUBIN NEGATIVE (NEGATIVE); URINE BLOOD NEGATIVE (NEGATIVE); URINE COLOR Straw (YELLOW); URINE GLUCOSE (UA) 3+ mg/dL (Normal); URINE KETONE NEGATIVE (NEGATIVE); URINE LEUKOCYTE ESTERASE 3+ Leu/uL (Negative); URINE PROTEIN 2+ mg/dL (NEGATIVE); URINE UROBILINOGEN NORMAL mg/dL (0.2-1.0); WBC URINE 37 /hpf (0-5)
[2016-08-26 15:33] VITALS: PULSE 59; TEMP 97.9; O2SAT 95
--- NOTE | 2016-08-26 19:07 | CP.PCM.PN ---
<RalphfranRegulo rosan - Last Filed: 09/02/16 15:16> Subjective - Date & Time of Evaluation Date of Evaluation: 09/02/16 Time of Evaluation: 07:47 - Subjective Subjective: Pt seen and examined. Pt reports that she is feeling well today. Pt reports that her shortness of breath has resolved and she has slight pain in he rright shoulder. Pt denies fever, chills, chest pain, shortness of breath, nausea, and vomiting. Objective - Vital Signs/Intake and Output Vital Signs (last 24 hours): Temp Pulse Resp BP Pulse Ox 97.9 F 59 L 20 130/80 95 08/26/16 15:29 08/26/16 15:29 08/26/16 15:29 08/26/16 18:31 08/26/16 15:29 Intake and Output: 08/26/16 08/27/16 18:59 06:59 Intake Total 400 Balance 400 - Medications Medications: Current Medications Aspirin (Aspirin Chewable) 81 mg PO DAILY [facility] Last Admin: 08/26/16 09:48 Dose: 81 mg Clopidogrel Bisulfate (Plavix) 75 mg PO DAILY [facility] Last Admin: 08/26/16 09:41 Dose: 75 mg Famotidine (Pepcid) 20 mg PO DAILY [facility] Last Admin: 08/26/16 09:40 Dose: 20 mg Furosemide (Lasix) 40 mg IVP DAILY [facility] Heparin Sodium (Porcine) (Heparin) 5,000 units SC Q12 [facility] Last Admin: 08/26/16 09:40 Dose: 5,000 units Insulin Detemir (Levemir) 10 unit SC [facility] Last Admin: 08/25/16 22:19 Dose: 10 unit Insulin Human Regular (Novolin R) 0 unit SC [facility] PRN Reason: Protocol Last Admin: 08/26/16 18:37 Dose: Not Given Metoprolol Tartrate (Lopressor) 25 mg PO Q12H [facility] Last Admin: 08/26/16 18:31 Dose: 25 mg Rosuvastatin Calcium (Crestor) 20 mg PO [facility] Last Admin: 08/25/16 22:19 Dose: 20 mg - Labs Labs: 08/26/16 10:29 08/26/16 10:29 PT 10.6 SECONDS (9.7-12.2) 08/24/16 15:31 INR 1.0 08/24/16 15:31 APTT 28 SECONDS (21-34) 08/24/16 15:31 - Constitutional Appears: No Acute Distress - Head Exam Head Exam: ATRAUMATIC, NORMOCEPHALIC - Eye Exam Eye Exam: EOMI, PERRL - ENT Exam ENT Exam: Mucous Membranes Moist. absent: Mucous Membranes Dry - Respiratory Exam Respiratory Exam: Clear to Ausculation Bilateral. absent: Rales, Rhonchi, Wheezes - Cardiovascular Exam Cardiovascular Exam: +S1, +S2. absent: Gallop, Rubs - GI/Abdominal Exam GI & Abdominal Exam: Soft, Normal Bowel Sounds. absent: Distended, Guarding, Tenderness - Extremities Exam Extremities Exam: Full ROM. absent: Pedal Edema - Neurological Exam Neurological Exam: Alert, Awake, Oriented x3 - Psychiatric Exam Psychiatric exam: Normal Affect, Normal Mood - Skin Skin Exam: Normal Color, Warm Assessment and Plan - Assessment and Plan (Free Text) Assessment: CHF Exacerbation: CXR - cardiomegaly and pulmonary venous congestion (please see full report_ Pro-BNP 67628. D-dimer < 200 Cardiology, Dr. Jean consulted, help appreciated. Lasix 40mg IV q12H. Lopressor 25mg PO q12H. Lisinopril held due to CKD Troponins 0.09, 0.092, 0.1 x 3 Echocardiogram - severe cardiomyopathy, ejection fraction of 35% Arterial duplex negative As per Dr. Jean, pt will need cath. Pt unsure of whether she wants to have procedure done. Renal Insufficiency: Cr 3.3 today, worsening Nephro Dr. Greene consulted, help appreciated. As per nephro, likely worsening CKD due to diabetic nephropathy Diabetes Mellitus: RISS, accuchecks. Lantus 10U SC HS. Hx of AL: Plavix 75mg PO daily. ASA 81mg PO daily. Crestor 20mg PO HS. Prophylactic measure: DVT: SCDs contraindicated due to lower extremity edema, heparin 5000 units sc q12h GI: Protonix 40 mg po qd <Trey Sanderson - Last Filed: 09/25/16 14:29> Objective - Vital Signs/Intake and Output Vital Signs (last 24 hours): Temp Pulse Resp BP Pulse Ox 97.9 F 59 L 20 123/60 95 08/26/16 15:29 08/26/16 15:30 08/26/16 15:29 08/26/16 23:53 08/26/16 15:29 - Labs Labs: 08/27/16 13:50 08/27/16 13:50 PT 10.6 SECONDS (9.7-12.2) 08/24/16 15:31 INR 1.0 08/24/16 15:31 APTT 28 SECONDS (21-34) 08/24/16 15:31 Attending/Attestation - Attestation I have personally seen and examined this patient.: Yes I have fully participated in the care of the patient.: Yes I have reviewed all pertinent clinical information, including history, physical exam and plan: Yes Notes (Text): Patient Seen and examined with the resident. Agree with the resident's evaluation, assessment and plan. CHF Exacerbation: acute on chronic diastolic Acute Renal Insufficiency
[2016-08-26] MEDS: Insulin Detemir 100 units/ml Vial (Levemir) SC SCH (21:41)
--- NOTE | 2016-08-26 23:11 | CP.PCM.PN ---
Subjective - Date & Time of Evaluation Date of Evaluation: 08/26/16 Time of Evaluation: 20:30 - Subjective Subjective: Patient reports sob improved; Objective - Vital Signs/Intake and Output Vital Signs (last 24 hours): Temp Pulse Resp BP Pulse Ox 97.9 F 59 L 20 130/80 95 08/26/16 15:29 08/26/16 15:30 08/26/16 15:29 08/26/16 18:31 08/26/16 15:29 Intake and Output: 08/26/16 08/27/16 18:59 06:59 Intake Total 400 Balance 400 - Medications Medications: Current Medications Aspirin (Aspirin Chewable) 81 mg PO DAILY [facility] Last Admin: 08/26/16 09:48 Dose: 81 mg Clopidogrel Bisulfate (Plavix) 75 mg PO DAILY [facility] Last Admin: 08/26/16 09:41 Dose: 75 mg Famotidine (Pepcid) 20 mg PO DAILY [facility] Last Admin: 08/26/16 09:40 Dose: 20 mg Furosemide (Lasix) 40 mg IVP DAILY [facility] Heparin Sodium (Porcine) (Heparin) 5,000 units SC Q12 [facility] Last Admin: 08/26/16 21:38 Dose: 5,000 units Insulin Detemir (Levemir) 10 unit SC [facility] Last Admin: 08/26/16 21:41 Dose: 10 unit Insulin Human Regular (Novolin R) 0 unit SC [facility] PRN Reason: Protocol Last Admin: 08/26/16 22:45 Dose: Not Given Metoprolol Tartrate (Lopressor) 25 mg PO Q12H [facility] Last Admin: 08/26/16 18:31 Dose: 25 mg Rosuvastatin Calcium (Crestor) 20 mg PO [facility] Last Admin: 08/26/16 21:38 Dose: 20 mg - Labs Labs: 08/26/16 10:29 08/26/16 10:29 PT 10.6 SECONDS (9.7-12.2) 08/24/16 15:31 INR 1.0 08/24/16 15:31 APTT 28 SECONDS (21-34) 08/24/16 15:31 - Constitutional Appears: Well, No Acute Distress - Eye Exam Eye Exam: Normal appearance - ENT Exam ENT Exam: Mucous Membranes Moist - Respiratory Exam Respiratory Exam: Clear to Ausculation Bilateral, NORMAL BREATHING PATTERN - Cardiovascular Exam Cardiovascular Exam: REGULAR RHYTHM, +S1, +S2 - GI/Abdominal Exam GI & Abdominal Exam: Soft. absent: Distended - Extremities Exam Additional comments: Leg edema present - Neurological Exam Neurological Exam: Alert, Awake - Psychiatric Exam Psychiatric exam: Normal Affect, Normal Mood - Skin Skin Exam: Warm. absent: Cyanosis Assessment and Plan (1) CKD stage 4 due to type 2 diabetes mellitus Assessment & Plan: Patient will need cath due to findings consistent with ischemic cardiomyopathy; high risk for KYLE in this setting; patient being discharged as she is undecided about going through with cath; needs close f/u; counseled on impending need for dialysis in the not so distant future; Status: Acute (2) Proteinuria Assessment & Plan: Needs to be maintained on TAVON blockade for this with dose titrated upward as tolerated and with renal function monitored closely; Status: Acute (3) Hyperlipidemia Status: Acute (4) Congestive heart failure Assessment & Plan: Acute decompensated systolic CHF, symptomatically improved; needs to be maintained on twice daily lasix to ensure adequate diuresis in the setting of advanced CKD; Status: Acute
[2016-08-26 23:53] VITALS: BP 123/60
[2016-08-27 07:44] LABS: KAPPA/LAMBDA FREE RATIO 1.59 (0.26-1.65)
[2016-08-27] MEDS: Insulin Detemir 100 units/ml Vial (Levemir) SC SCH (21:20)
[2016-08-27] MEDS: (Novolin R) Insulin Human Regular 100 units/ml vial SC SCH (21:21)
[2016-08-27 21:28] LABS: PHOSPHOROUS 5.4 mg/dL (2.5-4.5)
--- NOTE | 2016-08-27 22:14 | PN ---
DATE: 08/27/2016 The patient denies any chest pain. Her shortness breath has improved, as well as leg swelling. PHYSICAL EXAMINATION: VITAL SIGNS: Blood pressure 123/60, heart rate 59, temperature 97.9, respiration 20. HEENT: Normocephalic. NECK: No JVD. CHEST: Diminished breath sounds over the bases. HEART: S1, S2 regular. EXTREMITIES: 1+ pitting edema. LABORATORIES: Today's blood sugar is 199. is listed on the computer as still pending. ASSESSMENT: 1. Ischemic cardiomyopathy. 2. Uncontrolled diabetes mellitus. RECOMMENDATIONS: Continue aspirin 81 mg once a day, Crestor 20 mg once a day, subcutaneous heparin 5 000 units subcutaneous twice a day, Lasix 40 mg intravenously once a day, Lopressor 25 mg twice a day . The patient was offered cardiac catheterization. However, she did not give an answer and she want ed to have a discussion with her first. The procedure and its risks, including the risk of w orsening underlying renal insufficiency, were explained to the patient by a unscrambler who i s a kind Nepali-speaking nurse on the telemetry unit by the name of Tess. Josef Jean MD cc: [id number] TT: 08/27/2016 22:13:55 Confirmation # [id number] Dictation # [id number] [email or web address]
[2016-08-27 22:20] LABS: POTASSIUM 4.3 mmol/L (3.6-5.2)
[2016-08-27 22:22] LABS: ALB/GLOB RATIO 1.1 (1.0-2.1); BILIRUBIN,TOTAL 0.6 mg/dL (0.2-1.3); TOTAL PROTEIN 7.8 g/dL (6.3-8.3)
[2016-08-27 22:23] LABS: CALCIUM 8.4 mg/dl (8.6-10.4)
[2016-08-28 08:17] LABS: CALCIUM 8.8 mg/dL (8.6-10.4)
[2016-08-28 08:29] LABS: HEMATOCRIT 38.5 % (34.0-47.0); MEAN CELL VOLUME 83.8 fL (81.0-99.0); MEAN CORPUSCULAR HEMOGLOBIN 26.8 pg (27.0-31.0); MEAN PLATELET VOLUME 10.5 fL (7.2-11.7); RED CELL DISTRIBUTION WIDTH 14.5 % (11.5-14.5); WHITE BLOOD COUNT 6.5 K/uL (4.8-10.8)
== END 2016-08-27 21:30 | disposition home or self-care (01) ==
LOC: C.ER 13:39 → C.9E 16:26 → C.6T 17:04
PROVIDERS: ADMIT Internal Medicine; ATTEND Internal Medicine
DX: I13.0 Hypertensive heart and chronic kidney disease with heart failure and stage 1 through stage 4 chronic kidney disease, or unspecified chronic kidney disease (principal); N18.4 Chronic kidney disease, stage 4 (severe); E11.22 Type 2 diabetes mellitus with diabetic chronic kidney disease; Z87.891 Personal history of nicotine dependence; I50.23 Acute on chronic systolic (congestive) heart failure; E78.5 Hyperlipidemia, unspecified; I25.2 Old myocardial infarction; R31.9 Hematuria, unspecified; Z86.73 Personal history of transient ischemic attack (TIA), and cerebral infarction without residual deficits; I25.5 Ischemic cardiomyopathy
CPT/HCPCS: 36415; 71020; 76770; 76857; 80053; 80061; 81001; 82550; 82553; 82570; 82728; 82948; 83036; 83540; 83550; 83690; 83735; 83880; 83883; 84100; 84155; 84165; 84300; 84436; 84443; 84484; 84540; 85025; 85027; 85378; 85610; 85730; 86021; 86038; 86160; 86334; 86592; 86803; 87086; 87340; 93005; 93306; 93970; 97116; 97162; 99285; G0378; G0480; G8978; G8979; J1644; J1940